=== PATIENT | male | born 2000 ===

== ENCOUNTER 2019-08-30 11:28 | Emergency (ER) | payer MEDICAID ==
[~2019-08-30] VITALS: Ht 182.9 cm; Wt 65.9 kg
[2019-08-30 12:17] VITALS: BP 119/76
== END 2019-08-30 12:28 | disposition home or self-care (01) ==
LOC: EMS 11:33
DX: J02.8 Acute pharyngitis due to other specified organisms (principal); R05 Cough; F17.210 Nicotine dependence, cigarettes, uncomplicated; F41.9 Anxiety disorder, unspecified; F12.90 Cannabis use, unspecified, uncomplicated
CPT/HCPCS: 99406